=== PATIENT | male | born 1980 | race Two or more races ===

== ENCOUNTER 2021-01-15 20:46 | Emergency (ER) | payer BC ==
[2021-01-15] MEDS ORDERED: Aspirin 81 MG Tab.Chew PO ONE (21:00)
--- NOTE | 2021-01-15 21:18 | PCM.EKG ---
#1 Interpretation EKG Date: 01/15/21 Time: 20:53 Rhythm: NSR Rate (Beats/Min): 99 [place]: Normal P-Wave: Present QRS: Normal ST-T: Normal QT: Normal Comparison: NA - No Prior EKG EKG Interpretation Comments: Sinus Rhythm
[2021-01-15 21:22] LABS: BLOOD UREA NITROGEN,BUN 13 mg/dL (7.0-18.0); CARBON DIOXIDE,CO2 24.8 mmol/L (21.0-32.0); CHLORIDE,CL 106 mmol/L (98-107); GLUCOSE RANDOM 106 mg/dL (74-106); POTASSIUM,K 4.2 mmol/L (3.5-5.1); SODIUM,NA 140 mmol/L (136-148)
[2021-01-15] MEDS ORDERED: Lactated Ringers 1,000 ML IV SCH (21:30)
--- NOTE | 2021-01-15 21:41 | CR ---
For Patients: As a result of the Cures Act, medical imaging exams and procedure reports are released immediately into your electronic medical record. You may view this report before your referring provider. If you have questions, please contact your health care provider. INDICATION: Chest pain. TECHNIQUE: Portable AP view of the chest. COMPARISON: None. FINDINGS: The cardiac, mediastinal and hilar contours are within normal limits. Pulmonary vasculature is unremarkable. Lungs are grossly clear. No appreciable pleural fluid. No pneumothorax. IMPRESSION: No radiographic signs of acute cardiopulmonary disease. Dictated by Arsh Mckinley MD @ 01/15/2021 9:40:18 PM Dictated by: Arsh Mckinley MD @ 01/15/2021 21:40:23 (Electronically Signed)
--- NOTE | 2021-01-15 22:34 | EDM.PDOC ---
ED HPI GENERAL MEDICAL PROBLEM - General Chief Complaint: Chest Pain Stated Complaint: CHEST PAIN Time Seen by Provider: 01/15/21 20:53 - History of Present Illness INITIAL COMMENTS - FREE TEXT/NARRATIVE: CHIEF COMPLAINT(S): "Sore in chest." HISTORY OF PRESENT ILLNESS: This is a 40-year-old man without any significant past medical history who comes to the emergency department with a chief complaint of "sore in the chest." The patient states that he is sore in his chest right here and points to a specific location on his left anterior chest. He describes it as a knot and it seems to worsen when he moves his chest. He states it is improved over the last 2 days but has been going on for approximately 1 week. He has not tried anything for it. He states that he is aching. He states that 4 years ago they had to remove some type of wire from his left side of his chest and they inserted a needle into his anterior chest that is the same location but he is having the pain. He states that every now and then he gets the same feeling/funny feeling in that location. He states that he sweaty because he walked all the way from the train station as he was riding on an [employer] train and decided to get off and come to the emergency department. He denies any shortness of breath. He denies any prior history of DVT or PE. He does have a family history of CAD in his brother. He personally does not have any history of CAD. REVIEW OF SYSTEMS: Constitutional: Positive for diaphoresis denies fever, chills. Eyes: Denies eye pain Ears, Nose, Mouth, & Throat: Denies earache Cardiovascular: Positive for aching left-sided chest pain Respiratory: Denies shortness of breath Gastrointestinal: Denies Nausea, vomiting, diarrhea, hematochezia. Genitourinary: Denies hematuria Skin:Denies a rash MSK: Denies joint pain Neurological: Denies blurred vision, numbness, tingling, weakness Psychiatric: Denies depression PAST MEDICAL HISTORY: As per history of present illness and as reviewed below otherwise noncontributory. SURGICAL HISTORY: As per history of present illness and as reviewed below otherwise noncontributory. SOCIAL HISTORY: As per history of present illness and as reviewed below otherwise noncontributory. FAMILY HISTORY: As per history of present illness and as reviewed below otherwise noncontributory. EXAMINATION OF ORGAN SYSTEMS/BODY AREAS: Constitutional: Blood pressure was 155/98, heart rate 98, respiratory rate 20 with an oxygen saturation of 95% on room air. Temperature 36.4 General: Diaphoretic man who is in no acute distress Psychiatric: Appropriate mood and affect. Eyes: No scleral icterus or conjunctival erythema ENMT: Moist mucous membranes. No pharyngeal erythema Cardiovascular: Regular, rate, and rhythm. No gallops, murmurs, or rubs. Bilateral upper extremity pulses symmetric and intact. No peripheral edema. No JVD. Point tenderness medial and superior to left nipple without any skin changes Respiratory: Lungs clear to auscultation bilaterally. No wheezes, rales, or rhonchi. Gastrointestinal: Soft, non-tender, non-distended. Normoactive bowel sounds Genitourinary: No suprapubic tenderness Musculoskeletal: Normal range of motion. Skin: No lesions or abrasions. Neurological: Alert, GCS 15 MEDICAL DECISION MAKING AND COURSE IN THE ED WITH INTERPRETATION/REVIEW OF DIAGNOSTIC STUDIES: Is a 40-year-old man with a past medical history of foreign body in left side of chest status post removal with needle who comes to the emergency department with left-sided chest aching not associated with any other symptoms who is diaphoretic because he walked in the heat [place] long way from the train. The patient is mildly hypertensive. We did obtain an EKG which was unremarkable. At this time we obtain a cardiac work-up. Will obtain a chest x- ray. We will provide the patient with 1 L of lactated Ringer's and 325 mg of aspirin. Laboratory: CBC is unremarkable. BMP is unremarkable. Magnesium is normal. Troponin is negative. Heart Score History: Slightly or Non-Suspicious (0) ECG: Normal (0) Age: <45 (0) Risk Factors: No known risk factors (0) Initial Troponin: </= normal limit (0) Total Score: 0 PERC Rule Age (>/=50): No (0) HR (>/=100): No (0) SaO2 on RA <95%: No (0) Unilateral Leg Swelling: No (0) Hemoptysis: No (0) Surgery/Trauma in last month requiring general anesthesia: No (0) Prior PE or DVT: : No (0) Hormone Use: No (0) PERC negative Since patient is PERC negative and pre-test probability <15%, there is no need for more intensive workup, <2% chance of PE The radiological images were viewed by myself along with reading the report from the radiologist. Chest x-ray does not reveal an acute cardiopulmonary process. On reevaluation, the patient's vitals had returned to normal. At this time given the duration of symptoms I do not believe a repeat troponin is necessary. I do believe the patient is experiencing pain secondary to muscle pain given its duration and the similarity to the past. I did recommend to the patient that he use Tylenol and Motrin for pain relief. He is to return for any new or worsening symptoms. He was managing discharge at this time and had no further questions DISPOSITION: Patient was discharged home in stable condition. CONDITION: Good PROCEDURES: None FINAL IMPRESSION(S)/DIAGNOSES: 1. Acute atypical chest pain 2. Acute diaphoresis likely secondary to environmental factors Yan Velez M.D. - Related Data Allergies Allergy/AdvReac Type Severity Reaction Status Date / Time No Known Allergies Allergy Verified 01/15/21 20:53 Home Meds: Home Meds Terbinafine [LamISIL] 250 mg PO DAILY 01/15/21 [History] Past Medical History - Past Surgical History Other Cardiovascular Surgeries/Procedures: surgery to chest to remove foreign body Social & Family History - Family History Family Medical History: No Pertinent Family History - Tobacco Use Tobacco Use Status *Q: Never Tobacco User - Recreational Drug Use Recreational Drug Use: No ED ROS GENERAL - Review of Systems Review Of Systems: See Below ED EXAM, GENERAL - Physical Exam Exam: See Below Course - Vital Signs Last Recorded V/S: Last Vital Signs Temp 36.4 C 01/15/21 20:52 Pulse 69 01/15/21 22:41 Resp 18 01/15/21 22:41 BP 131/75 01/15/21 22:41 Pulse Ox 96 01/15/21 22:41 - Orders/Labs/Meds Labs: Laboratory Tests 01/15/21 01/15/21 Range/Units 20:50 20:50 WBC 7.30 (4.0-11.0) K/uL RBC 5.04 (4.50-5.90) M/uL Hgb 15.6 (13.0-17.0) g/dL Hct 45.9 (38.0-50.0) % MCV 91.1 (80.0-98.0) fL MCH 31.0 (27.0-32.0) pg MCHC 34.0 (31.0-37.0) g/dL RDW Std Deviation 42.1 (28.0-62.0) fl RDW Coeff of Francia 13 (11.0-15.0) % Plt Count 279 (150-400) K/uL MPV 10.30 (7.40-12.00) fL Neut % (Auto) 65.0 (48.0-80.0) % Lymph % (Auto) 22.9 (16.0-40.0) % [place] % (Auto) 9.2 (0.0-15.0) % Eos % (Auto) 2.6 (0.0-7.0) % Baso % (Auto) 0.3 (0.0-1.5) % Neut # (Auto) 4.8 (1.4-5.7) K/uL Lymph # (Auto) 1.7 (0.6-2.4) K/uL [place] # (Auto) 0.7 (0.0-0.8) K/uL Eos # (Auto) 0.2 (0.0-0.7) K/uL Baso # (Auto) 0.0 (0.0-0.1) K/uL Nucleated RBC % 0.0 /100WBC Nucleated RBCs # 0 K/uL Sodium 140 (136-148) mmol/L Potassium 4.2 (3.5-5.1) mmol/L Chloride 106 (98-107) mmol/L Carbon Dioxide 24.8 (21.0-32.0) mmol/L BUN 13 (7.0-18.0) mg/dL Creatinine 1.0 (0.8-1.3) mg/dL Est Cr Clr Drug Dosing TNP Estimated GFR (MDRD) > 60.0 ml/min Glucose 106 (74-106) mg/dL Calcium 8.6 (8.5-10.1) mg/dL Magnesium 2.2 (1.8-2.4) mg/dL Troponin I < 0.050 (0.000-0.056) ng/mL Meds: Medications Discontinued Medications Generic Name Dose Route Start Last Admin Trade Name Freq PRN Reason Stop Dose Admin Aspirin 324 mg 01/15/21 21:00 01/15/21 21:04 Aspirin 81 Mg Tab.Chew PO 01/15/21 21:01 324 mg ONETIME ONE Administration Lactated Ringer's 1,000 mls @ 999 mls/hr 01/15/21 21:30 01/15/21 21:20 Ringers, Lactated IV 999 mls/hr ASDIRECTED SARITHA Administration Departure - Departure Time of Disposition: 22:33 Disposition: Home, Self-Care 01 Condition: Fair Clinical Impression: Atypical chest pain - Discharge Information *PRESCRIPTION DRUG MONITORING PROGRAM REVIEWED*: No *COPY OF PRESCRIPTION DRUG MONITORING REPORT IN PATIENT GARIMA: No Instructions: Chest Wall Pain, [id number], Nonspecific Chest Pain, Adult, [id number] Forms: ED Department Discharge Additional Instructions: Your evaluated today on an emergent basis. At this time all of your work-up was negative. Given your prior history with the removal of the wire this could be secondary to pain as this has been going on for a while and has worsened over the last few days. This could also be muscle strain versus spasm in your pectoralis muscle. I do recommend the use of Tylenol and Motrin alternating for pain relief and to ice the area and alternate with heat 20 minutes four times a day. In addition your blood pressure was elevated when you were here. I do recommend that you follow-up with your primary care doctor in [place] for further evaluation. If you have any worsening symptoms such as worsening chest pain, shortness of breath, passing out I would like you to return to the emergency department. [facility] - [facility] [address] [place] [address] [id number] [address] [id number] The patient is informed of any results of their evaluation and diagnostic workup and all questions are answered. They are given discharge instructions and retur n precautions. The patient is stable for discharge. The patient states they understand and agree with the plan and that they will return if their symptoms get worse or if they have any new concerns. The following information is given to patients seen in the emergency department who are being discharged to home. This information is to outline your options for follow-up care. We provide all patients seen in our emergency department with a follow-up referral. The need for follow-up, as well as the timing and circumstances, are variable depending upon the specifics of your emergency department visit. If you don't have a primary care physician on staff, we will provide you with a referral. We always advise you to contact your personal physician following an emergency department visit to inform them of the circumstance of the visit and for follow-up with them and/or the need for any referrals to a consulting specialist. The emergency department will also refer you to a specialist when appropriate. This referral assures that you have the opportunity for follow-up care with a specialist. All of these measure are taken in an effort to provide you with optimal care, which includes your follow-up. Under all circumstances we always encourage you to contact your private physician who remains a resource for coordinating your care. When calling for follow-up care, please make the office aware that this follow-up is from your recent emergency room visit. If for any reason you are refused follow-up, please contact the [facility] Emergency Depart[facility] t at and asked to speak to the emergency department charge nurse. Sepsis Event Note (ED) - Evaluation Sepsis Screening Result: No Definite Risk
== END 2021-01-15 22:43 | disposition home or self-care (01) ==
LOC: MW.ED 20:46
DX: R07.89 Other chest pain (principal); R61 Generalized hyperhidrosis
CPT/HCPCS: 36415; 71045; 80048; 83735; 84484; 85025; 93005; 99285; A9270; J7120; 99283

== ENCOUNTER 2024-04-21 14:31 | Emergency (ER) | payer SELFPAY ==
[2024-04-21] MEDS: Sodium Chloride 0.9% 1,000 ML IV ONE (15:12)
[2024-04-21] MEDS: Aspirin 81 MG Tab.Chew PO ONE (15:13)
[2024-04-21] MEDS: Ketorolac 30 MG/ML SDV IVPUSH ONE (15:13)
[2024-04-21 15:14] LABS: BASOPHILS ABSOLUTE AUTO 0.04 K/uL (0.00-0.20); BASOPHILS PERCENT AUTO 0.7 % (0.0-1.0); EOSINOPHILS ABSOLUTE AUTO 0.11 K/uL (0.00-0.45); EOSINOPHILS PERCENT AUTO 1.9 % (0.0-6.0); HEMATOCRIT 44.5 % (42.0-52.0); HEMOGLOBIN 15.6 g/dL (14.0-18.0); IMMATURE GRAN ABSOLUTE AUTO 0.03 K/uL (0.00-0.05); IMMATURE GRAN PERCENT AUTO 0.5 % (0.0-0.4); LYMPHOCYTES ABSOLUTE AUTO 1.03 K/uL (1.00-4.80); MEAN CORPUSCULAR HEMOGLOBIN 30.4 pg (28.0-32.0); MEAN CORPUSCULAR HGB CONC 35.1 g/dL (32.0-36.0); MEAN CORPUSCULAR VOLUME 86.6 fL (83.0-99.0); MEAN PLATELET VOLUME 9.4 fL (9.4-12.4); MONOCYTES ABSOLUTE AUTO 0.61 K/uL (0.00-0.80); MONOCYTES PERCENT AUTO 10.7 % (0.0-8.0); NEUTROPHILS ABSOLUTE AUTO 3.89 K/uL (1.80-7.70); NEUTROPHILS PERCENT AUTO 68.2 % (41.0-71.0); PLATELET COUNT,PLT 222 K/uL (150-400); RED BLOOD CELL COUNT 5.14 M/uL (4.52-5.90); WHITE BLOOD CELL COUNT,WBC 5.71 K/uL (3.9-11.3)
[2024-04-21 15:25] LABS: APPEARANCE,URINE CLEAR; BILIRUBIN,URINE NEGATIVE (NEGATIVE); COLOR,URINE YELLOW; GLUCOSE,URINE NEGATIVE (NEGATIVE); KETONES,URINE NEGATIVE (NEGATIVE); LEUKOCYTE ESTERASE,URINE NEGATIVE (NEGATIVE); NITRITE,URINE NEGATIVE (NEGATIVE); OCCULT BLOOD,URINE NEGATIVE (NEGATIVE); PROTEIN,URINE NEGATIVE (NEGATIVE); UROBILINOGEN,URINE 0.2 EU/dL (<2.0)
[2024-04-21 15:46] LABS: A/G RATIO 1.1 (0.9-1.6); ALBUMIN 3.9 g/dL (3.4-5.0); BILIRUBIN TOTAL 0.3 mg/dL (0.2-1.0); CALCIUM 8.7 mg/dL (8.5-10.1); CARBON DIOXIDE,CO2 27.7 mmol/L (21.0-32.0); CREATININE 1.1 mg/dL (0.8-1.3); EST CRCL DRUG DOSING (CG) 76.1 mL/min; MAGNESIUM 2.1 mg/dL (1.8-2.4); PROTEIN TOTAL,TP 7.5 g/dL (6.4-8.2)
[2024-04-21 16:01] LABS: CORONAVIRUS COVID-19 NAA NEGATIVE (NEGATIVE); INFLUENZA A NAA NEGATIVE (NEGATIVE); INFLUENZA B NAA NEGATIVE (NEGATIVE); RESPIRATORY SYNCYTIAL VIR NAA NEGATIVE (NEGATIVE)
== END 2024-04-21 16:30 | disposition home or self-care (01) ==
LOC: MW.ED 14:31 → MERGE 14:31 → EDBD 14:31 → MW.ED 16:30
DX: R07.9 Chest pain, unspecified (principal); I10 Essential (primary) hypertension; Z79.899 Other long term (current) drug therapy
CPT/HCPCS: 0241U; 36415; 71046; 80053; 81003; 83690; 83735; 84484; 85025; 93005; 96360; 99285; A9270; J7030; 93010; 99284